=== PATIENT | female | born 1945 | race Caucasian/White ===

== ENCOUNTER 2018-12-25 03:49 | Emergency (ER) | payer OTHER, MEDICARE ==
[~2018-12-25] VITALS: Ht 165.1 cm; Wt 81.6 kg
[2018-12-25 03:54] VITALS: BP_SYST 186
--- NOTE | 2018-12-25 04:00 | NUR ---
Patient to ER bed 05 to gown for evaluation. Side rails up. Report given to VISHNU New.
--- NOTE | 2018-12-25 04:00 | NUR ---
Patient AOx4, ambulatory, presents to ER with complaint of urinary frequency, burning, and chills since 0200. Patient states pain 9/10. Patient states hx of UTI's. No other symptoms or complaints.
--- NOTE | 2018-12-25 04:04 | NUR ---
ER MD Garrett at bedside for medical evaluation.
[2018-12-25] MEDS ORDERED: NITROFURANTOIN MONOHYD/M-CRYST 100 MG CAPSULE PO ONE (04:15)
[2018-12-25] MEDS ORDERED: PHENAZOPYRIDINE HCL 100 MG TABLET PO ONE (04:15)
--- NOTE | 2018-12-25 04:40 | NUR ---
No adverse reactions noted after medication administration. Will continue to monitor.
[2018-12-25 04:41] VITALS: BP_SYST 149
--- NOTE | 2018-12-25 04:41 | NUR ---
Patient given written and verbal discharge instructions and verbalizes understanding. ER MD discussed with patient the results and treatment provided. Patient in stable condition. ID arm band removed. Rx of Macrobid and Pyridium given. Patient educated on pain management and to follow up with PMD. Pain Scale 2/10 tolerable to patient. Opportunity for questions provided and answered. Medication side effect fact sheet provided.
[2018-12-25 04:44] LABS: BILIRUBIN,URINE NEGATIVE (NEGATIVE); BLOOD, URINE 1+ (NEGATIVE); CLARITY/URINE CLEAR (CLEAR); COLOR,URINE YELLOW (YELLOW); GLUCOSE,URINE NEGATIVE (NEGATIVE); KETONES,URINE NEGATIVE (NEGATIVE); LEUKOCYTE ESTERASE ,URINE 2+ (NEGATIVE); NITRITE, URINE NEGATIVE (NEGATIVE); PROTEIN URINE NEGATIVE (NEGATIVE); UROBILINOGEN,URINE 0.2 (0.2-1.0)
[2018-12-25 04:49] LABS: BACTERIA,URINE FEW /HPF (None Seen); WBC,URINE 50-80 /HPF (0-3)
== END 2018-12-25 04:41 | disposition home or self-care (01) ==
LOC: SED 03:49
DX: N39.0 Urinary tract infection, site not specified (principal); K21.9 Gastro-esophageal reflux disease without esophagitis; I10 Essential (primary) hypertension
CPT/HCPCS: 81000-TC; 87086; 87186-TC; 99283